=== PATIENT | female | born 1995 | race Caucasian/White ===

== ENCOUNTER 2016-07-30 19:42 | Inpatient (IN) ==
[2016-07-30] MEDS ORDERED: SODIUM CHLORIDE 0.9% 1,000 ML IV STA (20:57)
[2016-07-30] MEDS ORDERED: SODIUM CHLORIDE 0.9% 250 ML IV PRN (20:57)
--- NOTE | 2016-07-30 20:59 | Emergency Department Note ---
IPercy Emily, am scribing for, and in the presence of, Aiden Lagunas MD 20: 23. Bebo Lemus Robert M, MD, personally performed the services described in this documentation, ascribed by Claire Greer in my presence, and it is both accurate and complete . Arrival - Arrival Chief Complaint: Urogenital - Female ED Nursing Triage Note: C/O Lower abd pain that started Saturday night while having sex. Pt reports that she was sore in her lower abd Saturday and all day Saturday- Reports that she tried to have sex again Saturday night when the same sharp pain started again. Pt presented to [facility] today and was sent here for further evaluation/OB US. Pt reports LNMP was Jun 28, but didn't know she was until she went to the hospital. Pt denies vaginal discharge or bleeding. Last BM yesterday-normal. Denies urinary s/s. AB0 Mode of Arrival: Stretcher Limitations: No Limitations Source: Patient Time Seen by Provider: 07/30/16 20:06 - History of Present Illness HPI Narrative: Pt is a 21 y/o female who came to ED from [facility] for further evaluation of OB with US, with a Ben of 103. Pt c/o severe lower abdomen pain that started while having sex on Saturday, 2016. Pt states her pain continued Saturday through Saturday, but denies vaginal bleeding. Pt tried using heating pad to help ease abdomen pain but no relief. Pt had two syncopal episodes, one on Saturday and the other today, in which experiencing profuse diaphoresis, loss of vision, and urinating and defecated twice. Pt's last was under supervision of Dr. Hameed for her 14 month old son. Also , her sister had a tubal in which had no vaginal bleeding but was bleeding into the pelvis and H&H dropped fast, per mother. Onset (ago): day(s) Consistency: constant Severity: moderate, severe Severity scale (1-10): 6 Quality: aching Date of Last Menstrual Period: Jun 28 2016 Allergies/Adverse Reactions: Allergies Allergy/AdvReac Type Severity Reaction Status Date / Time No Known Allergies Allergy Verified 03/03/15 17:47 Home Medications: Home Medications Medication Instructions Recorded Confirmed Type No Known Home Medications [No 07/30/16 07/30/16 History Known Home Medications] Review of System - Review of System 12 point system: reviewed and no additional remarkable complaints except as stated - Review of System Constitutional: Present: diaphoresis (gross when in pain). Absent: chills, fever, weakness Respiratory: Absent: cough, respiratory distress Cardiovascular: Present: syncope (two episodes). Absent: chest pain Gastrointestinal: Present: abdominal pain (severe), nausea. Absent: vomiting, diarrhea Musculoskeletal: Absent: arm pain, back pain Skin: Absent: rash Neurological: Present: abnormal gait (with pain). Absent: headache, confusion Psychiatric: Absent: anxiety Medical,Surgical,& Family Hx - Medical History Neurology: No history of: Brain Aneurysm Reproductive: No history of: Ectopic , Complication - Surgical History Neurologic Surgeries: Patient denies: Brain Aneurysm Reproductive Surgeries: Patient denies;: Section - Family History Family History: Denies;: Family Anesthesia Reaction, Family Cancer, Family Diabetes, Family Heart Disease, Family Hypertension, Family Psychiatric Problems, Family Stroke - Social History Smoking Status: Never smoker Frequency of Alcohol Use: None Type of Drug Use: None Exam Vital Signs: Vital Signs Temperature 98.0 F 07/30/16 19:42 Pulse Rate 113 H 07/30/16 19:42 Respiratory Rate 16 07/30/16 19:42 Blood Pressure 113/75 07/30/16 19:42 O2 Sat by Pulse Oximetry 100 07/30/16 19:42 - General General appearance: alert, in no apparent distress - Head Head exam: Present: atraumatic, normocephalic - Eye Eye exam: Present: PERRL, EOMI - ENT ENT exam: Present: mucous membranes moist. Absent: mucous membranes dry - Neck Neck exam: Present: full ROM. Absent: tenderness - Chest Chest inspection: Present: symmetric chest wall rise. Absent: tenderness - Respiratory Respiratory exam: Present: normal lung sounds bilaterally. Absent: respiratory distress - Cardiovascular Cardiovascular exam: Present: tachycardia, normal heart sounds - Abdominal Exam Abdominal exam: Present: soft, tenderness (both lower quadrants; more so on right than left). Absent: distention, guarding, rebound - Extremities Exam Extremities exam: Present: full ROM. Absent: pedal edema - Neurological Exam Neurological exam: Present: alert, oriented X3, CN II-XII intact. Absent: motor sensory deficit - Psychiatric Psychiatric exam: Present: normal affect, normal mood - Skin Skin exam: Present: warm, dry Course - Consultations Consultation #1: Dr. Hameed was paged. Time: 20:51 Consultation #2: Dr. Hameed requests I call surgery back. I'm going to type and match her for 2 units of blood. Time: 20:54 Results - Diagnostic Findings Procedure: Ultrasound: image reviewed by me (complex fluid within the pelvis throughout. Cystic structure left ovary suspected ectopic.) Disposition Clinical Impression: Ruptured ectopic Case discussed with: patient, patient's family Disposition: Still a Patient Time of Disposition: 20:50
--- NOTE | 2016-07-30 21:13 | Ultrasound Report ---
History: Right lower quadrant pain. Reported positive test Date: 07/30/2016 Study: Transabdominal and transvaginal pelvic ultrasound Comparison exam: No previous available Real-time ultrasound images were captured and archived. Changes abdominal pelvic ultrasound: No intrauterine gestational sac is seen within the anteverted uterus. The endometrial echo measures 9.9 mm. There is a moderate amount of complex echogenic fluid in the posterior cul-de-sac at the midline and extending bilaterally. There is no gross extraovarian adnexal mass. Because of limited visualization, transvaginal images were acquired. Transvaginal pelvic ultrasound: The anteverted uterus measures 8.8 x 4.3 x 4.9 cm. There is no intrauterine gestational sac. The endometrial echo measures 9 mm. The right ovary measures 3.7 x 2.5 x 2.4 cm; the left ovary measures 5.6 x 3.0 x 4.3 mm. There is color Doppler flow to either ovary. There is a 16 mm simple cyst of the left ovary. There is no definite adnexal mass. Impression: Moderate amount of complex fluid with debris in the pelvis. This could represent hemorrhage or products of infection. There is no intrauterine gestational sac. There is no adnexal mass to suggest definite ectopic . Correlation with serum beta hCG level is advised PROCEDURE INTERPRETED AT [facility] DEPARTMENT OF RADIOLOGY Final Report Signed by: Dr. Krupa Howard
[2016-07-30 21:15] LABS: Hematocrit 26.4 VOL% (35.7-47.0); Hemoglobin 8.8 GM/DL (12.0-16.0)
[2016-07-30] MEDS ORDERED: METOCLOPRAMIDE 10 MG/2 ML VIAL ONE (21:18)
[2016-07-30] MEDS ORDERED: FAMOTIDINE 20 MG/2 ML VIAL IV ONE (21:19)
[2016-07-30] MEDS ORDERED: METOCLOPRAMIDE 10 MG/2 ML VIAL IV STA (21:20)
[2016-07-30] MEDS ORDERED: FAMOTIDINE 20 MG/2 ML VIAL IV STA (21:20)
[2016-07-30] MEDS ORDERED: CITRIC ACID/SODIUM CITRATE 30 ML UDCUP PO ONE (21:26)
--- NOTE | 2016-07-30 21:43 | History & Physical Report ---
Assessment and Plan (1) Ruptured ectopic Status: Acute Assessment and plan: Preparing for immediate laparotomy with anticipated salpingectomy. A second possibility could be an early intrauterine with a ruptured corpus luteum of early . Whatever the source there is significant anterior pelvic bleeding requires immediate attention. Current Visit: Yes History of Present Illness Chief complaint: acute pelvic pain History of present illness: Ms. Canales is a 21 year old female who presented to her local emergency room for evaluation of acute pelvic pain. She was discovered to have a positive test at very early levels and an ultrasound confirmed free blood in her pelvis along with a complex adnexal mass. She was transferred to [facility] for management of a presumed ruptured tubal . Home Medications Medication Instructions Recorded Confirmed Type No Known Home Medications [No 07/30/16 07/30/16 History Known Home Medications] Allergies Allergy/AdvReac Type Severity Reaction Status Date / Time No Known Allergies Allergy Verified 03/03/15 17:47 - Constitutional Constitutional: Present: as per HPI - EENT Eyes: Present: as per HPI Nose, mouth and throat: Present: as per HPI - Cardiovascular Cardiovascular: Present: as per HPI. Absent: dyspnea, lightheadedness, palpitations - Respiratory Respiratory: Present: as per HPI. Absent: dyspnea - Gastrointestinal Gastrointestinal: Present: abdominal pain. Absent: constipation, diarrhea, vomiting - Genitourinary Genitourinary: Present: other (pelvic exam not performed. Avoid damaging present ectopic gestation that is probably related leaking) - Musculoskeletal Musculoskeletal: Present: as per HPI - Neurological Neurological: Present: as per HPI - Psychiatric Psychiatric: Present: as per HPI. Absent: anxiety, depression - Endocrine Endocrine: Present: as per HPI - Hematologic/Lymphatic Hematologic/Lymphatic: Present: as per HPI Medical,Surgical,& Family Hx - Medical History Neurology: No history of: Brain Aneurysm Reproductive: No history of: Ectopic , Complication - Surgical History Neurologic Surgeries: Patient denies: Brain Aneurysm Reproductive Surgeries: Patient denies;: Section - Family History Family History: Denies;: Family Anesthesia Reaction, Family Cancer, Family Diabetes, Family Heart Disease, Family Hypertension, Family Psychiatric Problems, Family Stroke - Social History Smoking Status: Never smoker Frequency of Alcohol Use: None Type of Drug Use: None Exam - Constitutional Vitals: Period Temp Pulse Resp BP Sys/Dubose Pulse Ox Last 24 Hr 98.0 F-98.0 F 113-113 16-16 113-113/75-75 100 General appearance: other (moderate discomfort, with facial grimacing) - Head Head exam: Present: normal inspection - Neck Neck exam: Present: normal inspection - Respiratory Respiratory exam: Present: clear to auscultation bilaterally. Absent: accessory muscle use - Cardiovascular Cardiovascular exam: Present: regular rate and rhythm, tachycardia - GI/Abdominal GI/Abdominal exam: Present: guarding, tenderness - Extremities Exam Extremities exam: Present: normal inspection - Back Exam Back exam: Present: normal inspection - Neurological Exam Neurological exam: Present: alert, oriented X3 - Psychiatric Psychiatric exam: Present: normal affect, normal mood - Skin Skin exam: Present: normal color Results - Labs CBC & BMP: 07/30/16 20:21
[2016-07-30] MEDS ORDERED: PHENYLEPHRINE 1 MG/10 ML SYRINGE IV ONE (21:45)
[2016-07-30] MEDS ORDERED: ROCURONIUM 100 MG/10 ML VIAL IV ONE (21:45)
[2016-07-30] MEDS ORDERED: GLYCOPYRROLATE 0.4 MG/2 ML VIAL ONE (21:45)
[2016-07-30] MEDS ORDERED: KETOROLAC 30 MG/1 ML VIAL ONE (21:45)
[2016-07-30] MEDS ORDERED: LIDOCAINE 2% 5 ML VIAL ONE (21:45)
[2016-07-30] MEDS ORDERED: ONDANSETRON 4 MG/2 ML VIAL ONE (21:45)
[2016-07-30] MEDS ORDERED: SUCCINYLCHOLINE 200 MG/10 ML VIAL ONE (21:45)
[2016-07-30] MEDS ORDERED: NEOSTIGMINE 10 MG/10 ML VIAL ONE (21:45)
[2016-07-30] MEDS ORDERED: PROPOFOL 200 MG/20 ML VIAL IV ONE (21:45)
[2016-07-30] MEDS ORDERED: DEXAMETHASONE 4 MG/1 ML VIAL ONE (21:45)
[2016-07-30] MEDS ORDERED: TISSUE ADHESIVE 1 EACH APPLICATOR TOP ONE (22:47)
[2016-07-30] MEDS ORDERED: ceFAZolin 1,000 MG VIAL ONE (22:47)
[2016-07-30 23:37] LABS: Apearance,Urine CLEAR (Clear); Bacteria,Urine Occasional /HPF (Few); Bilirubin,Urine Negative (Negative); Blood, Urine Negative (Negative); Glucose,Urine (UA) Negative (Negative); Ketones,Urine Negative (Negative); Mucus,Urine Occasional /LPF (Occasional); Nitrite,Urine Negative (Negative); Protein,Urine Negative; RBC,Urine 2 /HPF (0-4); Squamous Epithelial Cell,Urine Occasional /HPF (0-10); Urine Color Yellow (Yellow); Urine Specific Gravity 1.019 (1.001-1.035); Urine Urobilinogen < 2.0 EU/DL (0.2-1.0); WBC,Urine 2 /HPF (0-6)
--- NOTE | 2016-07-30 23:57 | Anesthesia ---
Anesthesia Post OP - Post Ansesthetic Evaluation Patient seen in post op: Yes Resp: within normal limits CV: within normal limits Mental: within normal limits Temp: within normal limits Apwe-Mp-Cfzlzszcg: within normal limits Nausea and Vomiting: within normal limits Pain: within normal limits
[2016-07-30] MEDS ORDERED: fentaNYL 100 MCG/2 ML VIAL ONE (23:59)
[2016-07-30] MEDS ORDERED: ACETAMINOPHEN 1,000 MG/100 ML VIAL IV ONE (23:59)
[2016-07-31] MEDS ORDERED: SEVOFLURANE 1 UNIT/15 MINUTE INH ONE
[2016-07-31] MEDS ORDERED: LACTATED RINGERS 2,000 ML IV ONE
[2016-07-31] MEDS ORDERED: HYDROmorphone 2 MG/1 ML VIAL ONE (00:12)
[2016-07-31] MEDS ORDERED: ONDANSETRON 4 MG/2 ML VIAL ONE (00:13)
[2016-07-31] MEDS ORDERED: ONDANSETRON 4 MG/2 ML VIAL IV PRN (00:16)
[2016-07-31] MEDS ORDERED: HYDROmorphone 2 MG/1 ML VIAL IV PRN (00:16)
[2016-07-31] MEDS ORDERED: ACETAMINOPHEN 325 MG TABLET PO PRN (00:26)
[2016-07-31] MEDS ORDERED: IBUPROFEN 800 MG TABLET PO PRN (00:26)
[2016-07-31] MEDS ORDERED: KETOROLAC 30 MG/1 ML VIAL IM ONE (00:26)
[2016-07-31] MEDS ORDERED: BISACODYL 10 MG SUPP RECTAL PRN (00:26)
[2016-07-31] MEDS ORDERED: BENZOCAINE/MENTHOL LOZENGE 18/BOX PO PRN (00:26)
[2016-07-31] MEDS ORDERED: DEXTROSE 5% LACTATED RINGERS 1,000 ML IV SCH (00:30)
[2016-07-31] MEDS ORDERED: LACTATED RINGERS 1,000 ML IV SCH (00:30)
[2016-07-31 00:48] LABS: Basophils % 0.2 % (0.0-0.8); Eosinophils % 0.2 % (0.00-10.9); Hematocrit 25.3 VOL% (35.7-47.0); Hemoglobin 8.4 GM/DL (12.0-16.0); Immature Granulocytes Absolute 0.12 #; Lymphocytes # 1.6 10*3/uL (1.4-4.0); Lymphocytes % 13.2 % (21.3-54.2); Mean Corpuscular HGB Conc 33.2 GM/DL (32-36); Mean Corpuscular Hemoglobin 30 PG (27-34); Mean Corpuscular Volume 88.8 FL (87-102); Mean Platelet Volume 9.5 FL (9.6-12.0); Monocytes # 0.2 10*3/uL (0.11-0.8); Monocytes % 1.7 % (1.7-12.7); Neutrophils # 9.9 10*3/uL (1.4-7.4); Neutrophils % 83.7 % (38.7-73.9); Platelet Count 200 T/CUMM (130-400); Red Blood Count 2.85 MC/CUMM (3.8-5.5); Red Cell Distribution Width 12.4 % (9.3-17.3); White Blood Count 11.9 T/CUMM (4-12)
--- NOTE | 2016-07-31 00:51 | Operative Note ---
Date of procedure: 07/30/16 Pre-op diagnosis: ruptured ectopic with hemoperitoneum Post-op diagnosis: other (ruptured corpus luteum of (left ovary) with hemoperitoneum) Procedure: Exploratory laparotomy with evacuation of hemoperitoneum, reconstruction of left ovary The patient was taken to the operating room and administered a general anesthetic and prepped and draped in supine position. A Pfannenstiel incision was made through the skin and subcutaneous tissue and carried downward to the rectus sheath. Anterior rectus sheath was incised transversely and dissected away from the underlying rectus muscle. Rectus muscle was divided in the midline, the peritoneum identified elevated with hemostats and entered sharply with scissors. A combination of fresh and dark blood was evacuated from the pelvis and lower abdomen. Examination of both fallopian tubes without any evidence of ectopic gestation. The left ovary was enlarged approximately 4 x 5 cm and appeared quite fragile without any gross tear. Approximately 800 mL were evacuated extending up into the abdominal gutters. Careful inspection of all pelvic structures revealed no other source of bleeding. The left ovary was opened along its antimesenteric border and a corpus luteum confirmed. Horizontal mattress sutures were placed through the ovary incorporating blood vessels in the cortex. The surface the cortex was closed with a vertical mattress running stitch of 2-0 Vicryl, with smaller defects repaired with figure -of-eight sutures of 3-0 Vicryl. A small piece of omentum was removed and placed over the top of the ovary and sutured in place with 3-0 Vicryl sutures. Several 100 mL were placed in the abdomen and Clots irrigated out. A stab wound was made left lower quadrant and a CINDY drain inserted into the left lower quadrant placed in the cul-de-sac. This was sutured in place with 0 Vicryl suture. The peritoneum was closed with running suture of 2-0 Vicryl. The rectus muscle was closed with a suture of 2-0 Vicryl with a running technique. The anterior rectus sheath was closed with interrupted sutures of 0 Vicryl. The fat was irrigated and closed with running suture of 2-0 Vicryl. The skin was closed with a running subcuticular suture of 3-0 Monocryl. The patient was sent to the recovery room in satisfactory condition. Anesthesia: MCKENZIEA Surgeon / Physician: Hung Hameed Estimated blood loss: other (1000 mL) Specimens: none sent Condition: stable Disposition: PACU Results - Labs CBC & BMP: 07/30/16 20:21 Discharge Plan - Discharge Data Disposition: Still a Patient - Discharge Medications No Action No Known Home Medications [No Known Home Medications] - Follow Up or Referral - Forms/Instructions
[2016-07-31] MEDS ORDERED: HYDROmorphone 2 MG/1 ML VIAL IM PRN (01:18)
[2016-07-31] MEDS: ONDANSETRON 4 MG/2 ML VIAL IV PRN ×2 (03:45→08:30)
[2016-07-31 04:27] LABS: Hematocrit 22.8 VOL% (35.7-47.0); Hemoglobin 7.5 GM/DL (12.0-16.0)
[2016-07-31] MEDS ORDERED: HYDROmorphone 2 MG/1 ML VIAL IV ONE (08:45)
[2016-07-31] MEDS ORDERED: SIMETHICONE CHEW 80 MG TABLET PO PRN (09:20)
[2016-07-31] MEDS: MAGNESIUM HYDROXIDE SUSP 30 ML UDCUP PO PRN ×2 (09:30→20:43)
[2016-07-31] MEDS: FERROUS SULFATE 325 MG TABLET PO SCH ×2 (09:30→20:44)
[2016-07-31] MEDS: DOCUSATE SODIUM 100 MG CAPSULE PO PRN ×2 (09:30→20:43)
[2016-07-31 10:04] LABS: Basophils % 0.1 % (0.0-0.8); Hematocrit 21.7 VOL% (35.7-47.0); Hemoglobin 7.3 GM/DL (12.0-16.0); Immature Granulocytes % 0.6 %; Immature Granulocytes Absolute 0.05 #; Lymphocytes # 1.1 10*3/uL (1.4-4.0); Lymphocytes % 12.1 % (21.3-54.2); Mean Corpuscular HGB Conc 33.6 GM/DL (32-36); Mean Corpuscular Hemoglobin 30 PG (27-34); Mean Corpuscular Volume 88.2 FL (87-102); Monocytes # 0.7 10*3/uL (0.11-0.8); Monocytes % 7.8 % (1.7-12.7); Neutrophils % 79.4 % (38.7-73.9); Platelet Count 165 T/CUMM (130-400); Red Blood Count 2.46 MC/CUMM (3.8-5.5); Red Cell Distribution Width 12.6 % (9.3-17.3); White Blood Count 8.8 T/CUMM (4-12)
--- NOTE | 2016-07-31 15:44 | OB/GYN Progress Note ---
Assessment and Plan (1) Ruptured ectopic Status: Acute Assessment and plan: Preparing for immediate laparotomy with anticipated salpingectomy. A second possibility could be an early intrauterine with a ruptured corpus luteum of early . Whatever the source there is significant anterior pelvic bleeding requires immediate attention. Current Visit: Yes (2) Corpus luteum cyst of left ovary Status: Acute Current Visit: Yes (3) Corpus luteum cyst of left ovary Status: Acute Assessment and plan: Apparent continuing early (suspect between 4 and 5 weeks menstrual gestation). Current Visit: Yes (4) Acute blood loss anemia Status: Acute Assessment and plan: Transfuse 2 units packed RBC's Current Visit: Yes STAFF NURSE ICU RESOURCE TEAM - PN: Subj Interval history: Patient stabilized well and has been able to Ambulate to the Bathroom. Count Has Dropped down to Hemoglobin 7.3 and the Patient Appears Pale but All Vital Signs Have Remained within Normal Range. Exam STAFF NURSE ICU RESOURCE TEAM - Constitutional Vitals: Vital Signs Temp Pulse Pulse Resp BP Pulse Ox Pulse Ox 07/31/16 14:00 20 07/31/16 12:00 16 07/31/16 11:32 98.9 F 84 16 87/46 07/31/16 10:00 20 07/31/16 08:00 83 16 07/31/16 07:38 98 F 83 16 96/59 07/31/16 06:00 92 H 20 93/60 07/31/16 05:00 82 18 98/56 07/31/16 03:45 99.1 F 103 H 18 99/58 99 07/31/16 02:11 91 H 16 94/54 98 07/31/16 01:50 89 20 104/61 100 07/31/16 01:20 79 16 99/64 100 07/31/16 01:12 98.5 F 75 18 96/71 100 07/31/16 00:50 98.5 F 75 18 96/71 100 07/31/16 00:33 98.0 F 82 20 112/68 100 07/31/16 00:28 70 16 110/55 100 Pulse Ox 07/31/16 14:00 07/31/16 12:00 07/31/16 11:32 97 07/31/16 10:00 07/31/16 08:00 07/31/16 07:38 100 07/31/16 06:00 96 07/31/16 05:00 96 07/31/16 03:45 07/31/16 02:11 07/31/16 01:50 07/31/16 01:20 07/31/16 01:12 07/31/16 00:50 07/31/16 00:33 07/31/16 00:28 General appearance: no acute distress - Neck Neck exam: Present: normal inspection - Respiratory Respiratory exam: Present: clear to auscultation bilaterally - Breast Menstruation: other (no vaginal bleeding) - Cardiovascular Cardiovascular exam: Present: tachycardia. Absent: irregular rhythm - GI/Abdominal GI/Abdominal exam: Present: distended, hypoactive bowel sounds, soft. Absent: guarding, tenderness, rebound - Extremities Exam Extremities exam: Present: normal inspection - Neurological Exam Neurological exam: Present: alert, oriented X3 - Psychiatric Psychiatric exam: Present: normal affect, normal mood - Skin Skin exam: Present: pallor Results - Labs CBC & BMP: 07/31/16 09:54
[2016-08-01 05:14] LABS: Basophils % 0.3 % (0.0-0.8); Eosinophils # 0.1 10*3/uL (0.0-0.87); Eosinophils % 1.1 % (0.00-10.9); Hematocrit 26.5 VOL% (35.7-47.0); Hemoglobin 8.8 GM/DL (12.0-16.0); Immature Granulocytes % 0.4 %; Immature Granulocytes Absolute 0.03 #; Lymphocytes # 2.2 10*3/uL (1.4-4.0); Lymphocytes % 31.9 % (21.3-54.2); Mean Corpuscular HGB Conc 33.2 GM/DL (32-36); Mean Corpuscular Hemoglobin 29 PG (27-34); Mean Corpuscular Volume 88.6 FL (87-102); Monocytes # 0.4 10*3/uL (0.11-0.8); Monocytes % 6.3 % (1.7-12.7); Neutrophils # 4.2 10*3/uL (1.4-7.4); Platelet Count 174 T/CUMM (130-400); Red Blood Count 2.99 MC/CUMM (3.8-5.5); Red Cell Distribution Width 13.6 % (9.3-17.3)
[2016-08-01] MEDS: FERROUS SULFATE 325 MG TABLET PO SCH (08:48)
[2016-08-01] MEDS: DOCUSATE SODIUM 100 MG CAPSULE PO PRN (08:48)
[2016-08-01 11:26] VITALS: BP 110/60
--- NOTE | 2016-08-01 12:41 | Discharge Summary ---
Hospital Course - Hospital Course Hospital Course: This patient was admitted through the emergency room with classical symptoms of a ruptured ectopic with hemoperitoneum. Emergency laparotomy was performed which revealed both tubes to be normal and a ruptured corpus luteum hemorrhagicum left. The pneumoperitoneum was evacuated and the ovary repaired. She received several units of blood postoperative for acute blood loss anemia. Today she is ambulating voiding tolerating diet well. Her hemoglobin is only back up to about 8 gm% but she feels ready to go home. Diagnosis - Discharge Diagnosis (1) Corpus luteum cyst of left ovary Status: Acute (2) Acute blood loss anemia Status: Acute Discharge Plan - Discharge Data Disposition: Disch To Home/Self Care Condition at Discharge: Stable Discharge Diet: advance to your usual diet Activity: resume usual activities as tolerated Hygiene: no restrictions Contact your physician if you experience:: fever over 101, Difficulty voiding, Redness or swelling, Nausea/Vomiting - Discharge Medications New HYDROcodone/ACETAMIN 5-325 [[place] 5-325] 1 tablet PO Q4H PRN #20 tablet PRN Reason: Pain Moderate (4-7) - Follow Up or Referral Follow Up: Hung Hameed DO [Physician] - - Forms/Instructions Additional Discharge Instructions: RTO next week. Exam - Constitutional Vitals: Period Temp Pulse Resp BP Sys/Dubose Pulse Ox Last 24 Hr 97.6 F-98.9 F 71-108 16-20 88-110/52-67 96-99 General appearance: no acute distress - Cardiovascular Cardiovascular exam: Present: regular rate and rhythm - GI/Abdominal GI/Abdominal exam: Present: normal bowel sounds, other (CINDY drain removed from LLQ w/o problems.). Absent: guarding, tenderness, rebound - Neurological Exam Neurological exam: Present: alert, oriented X3 - Psychiatric Psychiatric exam: Present: normal affect, normal mood - Skin Skin exam: Present: normal color, warm, dry Discharge Results Procedures and tests throughout hospitalization: Pending Orders 08/02/16 04:00 CBC [Comp Blood Count Auto Diff] IN AM Labs on day of discharge: Labs from last 24 hours 08/01/16 04:55 WBC 7.0 RBC 2.99 L D Hgb 8.8 L D Hct 26.5 L MCV 88.6 MCH 29 MCHC 33.2 RDW 13.6 Plt Count 174 MPV 9.0 L Neut % (Auto) 60.0 Lymph % (Auto) 31.9 Haakon % (Auto) 6.3 Eos % (Auto) 1.1 Baso % (Auto) 0.3 Neut # (Auto) 4.2 Lymph # (Auto) 2.2 Haakon # (Auto) 0.4 Eos # (Auto) 0.1 Baso # (Auto) 0.0 Immature Gran % 0.4 Nucleated RBC % 0.0 Immature Gran # 0.03 Nucleated RBCs # 0.00 DS: Provider Date of admission: 07/31/16 00:19 Primary care physician: . No PCP Attending physician on admission: Hugn Hameed DO Discharging clinician: Hung Hameed DO Expected date of discharge: 08/01/16
== END 2016-08-01 13:20 | disposition home or self-care (01) | DRG 781 ==
LOC: EDUNIT# → N.ED 19:42 → N.OB 21:47 → N.EDINP 07-31 00:19 → N.OB 07-31 01:04
PROVIDERS: ADMIT Obstetrics & Gynecology; ATTEND Obstetrics & Gynecology

== ENCOUNTER 2017-07-17 03:18 | Inpatient (IN) ==
[2017-07-17] MEDS ORDERED: BUTORPHANOL 2 MG/ML VIAL IV PRN (03:49)
[2017-07-17] MEDS ORDERED: TERBUTALINE 1 MG/1 ML VIAL SUBCUT PRN (03:49)
[2017-07-17] MEDS ORDERED: ONDANSETRON 4 MG/2 ML VIAL IV PRN ×2 (03:49→07:16)
[2017-07-17] MEDS: LACTATED RINGERS 1,000 ML IV SCH ×2 (04:00→04:58)
[2017-07-17] MEDS ORDERED: OXYTOCIN/LR 20 UNIT/1,000 ML BAG IV SCH (04:00)
[2017-07-17 04:32] LABS: Basophils % 0.3 % (0.0-0.8); Eosinophils % 0.3 % (0.00-10.9); Hemoglobin 10.6 GM/DL (12.0-16.0); Immature Granulocytes % 0.7 %; Immature Granulocytes Absolute 0.05 #; Lymphocytes # 1.8 10*3/uL (1.4-4.0); Lymphocytes % 26.6 % (21.3-54.2); Mean Corpuscular HGB Conc 31.2 GM/DL (32-36); Mean Corpuscular Hemoglobin 25 PG (27-34); Mean Corpuscular Volume 80.4 FL (87-102); Mean Platelet Volume 9.6 FL (9.6-12.0); Monocytes # 0.4 10*3/uL (0.11-0.8); Monocytes % 5.6 % (1.7-12.7); Neutrophils # 4.5 10*3/uL (1.4-7.4); Neutrophils % 66.5 % (38.7-73.9); Platelet Count 201 T/CUMM (130-400); Red Blood Count 4.23 MC/CUMM (3.8-5.5); Red Cell Distribution Width 14.6 % (9.3-17.3); White Blood Count 6.8 T/CUMM (4-12)
[2017-07-17 05:05] LABS: Alanine Aminotransferase 11 U/L (13-56); Albumin 2.6 G/DL (3.4-5.0); Alkaline Phosphatase 196 U/L (45-117); Aspartate Amino Transferase 15 U/L (0-37); Bilirubin,Total < 0.39 MG/DL (0.2-1.0); Blood Urea Nitrogen 12 MG/DL (7-18); Calcium 8.1 MG/DL (8.5-10.1); Glucose 77 MG/DL (74-106); Osmolality,Calculated 275.5 MOS/KG (273-304); Potassium 3.7 MMOL/L (3.5-5.1); Sodium 139 MMOL/L (136-145); Total Protein 5.9 G/DL (6.4-8.3)
[2017-07-17] MEDS ORDERED: CITRIC ACID/SODIUM CITRATE 30 ML UDCUP ONE (05:19)
[2017-07-17] MEDS ORDERED: diphenhydrAMINE 50 MG/1 ML VIAL IV PRN (05:21)
[2017-07-17] MEDS ORDERED: ePHEDrine 50 MG/ML AMP IV PRN (05:21)
[2017-07-17] MEDS ORDERED: LACTATED RINGERS 250 ML IV PRN (05:21)
[2017-07-17] MEDS ORDERED: hydrOXYzine HCL 25 MG/1 ML VIAL IM PRN (05:21)
[2017-07-17] MEDS ORDERED: LACTATED RINGERS 1,000 ML IV ONE (05:21)
[2017-07-17] MEDS ORDERED: FAMOTIDINE 20 MG/2 ML VIAL IV ONE ×2 (05:27→05:30)
[2017-07-17] MEDS ORDERED: PROMETHAZINE 25 MG/1 ML VIAL IM ONE (05:30)
[2017-07-17] MEDS ORDERED: CITRIC ACID/SODIUM CITRATE 30 ML UDCUP PO ONE (05:30)
[2017-07-17] MEDS ORDERED: LACTATED RINGERS 1,000 ML IV SCH (05:30)
[2017-07-17] MEDS ORDERED: fentaNYL 2 MCG/ROPIV 0.2% EPID 150 ML EPIDURAL SCH (05:30)
[2017-07-17 05:51] LABS: Apearance,Urine Slightly Hazy (Clear); Bacteria,Urine Occasional /HPF (Few); Bilirubin,Urine Negative (Negative); Blood, Urine Negative (Negative); Calcium Oxalate Crystals,Urine Few /HPF (Few); Glucose,Urine (UA) Negative (Negative); Hyaline Casts,Urine 4 /LPF (0-3); Ketones,Urine 80 mg/dL (Negative); Mucus,Urine Many /LPF (Occasional); Nitrite,Urine Negative (Negative); Protein,Urine Negative; Squamous Epithelial Cell,Urine Occasional /HPF (0-10); Urine Color Yellow (Yellow); Urine Specific Gravity 1.025 (1.001-1.035); Urine Urobilinogen < 2.0 EU/DL (0.2-1.0); WBC,Urine <1 /HPF (0-6)
[2017-07-17] MEDS ORDERED: miSOPROStol 200 MCG TABLET ONE (06:49)
[2017-07-17] MEDS ORDERED: METHYLERGONOVINE 0.2 MG/1 ML AMP ONE (06:49)
[2017-07-17] MEDS ORDERED: LIDOCAINE 1% 50 ML VIAL ONE (06:49)
[2017-07-17] MEDS ORDERED: BISACODYL 10 MG SUPP RECTAL PRN (07:16)
[2017-07-17] MEDS ORDERED: HYDROCORTISONE 2.5% RECTAL CREAM 30 GM TUBE TOP PRN (07:16)
[2017-07-17] MEDS ORDERED: BENZOCAINE 20%/MENTHOL 0.5% SPRAY 56 GM CAN TOP PRN (07:16)
[2017-07-17] MEDS ORDERED: DIPH/TET/ACEL PERT BOOSTER VACCINE 0.5 ML VIAL IM ONE (07:16)
[2017-07-17] MEDS ORDERED: LANOLIN 50% CREAM 0.3 OZ TUBE TOP PRN (07:16)
[2017-07-17] MEDS ORDERED: WITCH HAZEL PADS 100/JAR TOP PRN (07:16)
[2017-07-17] MEDS ORDERED: RHO(D) IMMUNE GLOBULIN 300 MCG SYRINGE IM ONE (07:16)
[2017-07-17] MEDS ORDERED: MEASLES/MUMPS/RUBELLA VACCINE 0.5 ML VIAL SUBCUT ONE (07:16)
[2017-07-17] MEDS ORDERED: oxyCODONE/ACETAMINOPHEN 5-325 MG TABLET PO PRN ×2 (07:16)
[2017-07-17] MEDS ORDERED: OXYTOCIN/LR 20 UNIT/1,000 ML BAG IV ONE (07:16)
[2017-07-17] MEDS ORDERED: ACETAMINOPHEN 325 MG TABLET PO PRN (07:16)
[2017-07-17] MEDS: IBUPROFEN 800 MG TABLET PO PRN (18:54)
[2017-07-17] MEDS: DOCUSATE SODIUM 100 MG CAPSULE PO SCH ×2 (20:39→21:29)
[2017-07-18] MEDS: IBUPROFEN 800 MG TABLET PO PRN ×2 (03:31→14:07)
[2017-07-18 06:33] LABS: Basophils % 0.4 % (0.0-0.8); Eosinophils % 0.2 % (0.00-10.9); Hematocrit 31.5 VOL% (35.7-47.0); Hemoglobin 9.8 GM/DL (12.0-16.0); Immature Granulocytes % 0.6 %; Immature Granulocytes Absolute 0.05 #; Lymphocytes # 2.4 10*3/uL (1.4-4.0); Lymphocytes % 27.6 % (21.3-54.2); Mean Corpuscular HGB Conc 31.1 GM/DL (32-36); Mean Corpuscular Hemoglobin 25 PG (27-34); Mean Corpuscular Volume 79.5 FL (87-102); Mean Platelet Volume 9.9 FL (9.6-12.0); Monocytes # 0.5 10*3/uL (0.11-0.8); Monocytes % 5.6 % (1.7-12.7); Neutrophils # 5.6 10*3/uL (1.4-7.4); Neutrophils % 65.6 % (38.7-73.9); Platelet Count 188 T/CUMM (130-400); Red Blood Count 3.96 MC/CUMM (3.8-5.5); Red Cell Distribution Width 14.9 % (9.3-17.3); White Blood Count 8.5 T/CUMM (4-12)
[2017-07-18] MEDS: DOCUSATE SODIUM 100 MG CAPSULE PO SCH ×2 (08:25→22:05)
[2017-07-18] MEDS: FERROUS SULFATE 325 MG TABLET PO SCH (08:25)
[2017-07-19] MEDS: DOCUSATE SODIUM 100 MG CAPSULE PO SCH (09:16)
[2017-07-19] MEDS: FERROUS SULFATE 325 MG TABLET PO SCH (09:16)
[2017-07-19 11:46] VITALS: BP 111/74
[2017-07-19] MEDS: IBUPROFEN 800 MG TABLET PO PRN (14:45)
== END 2017-07-19 15:45 | disposition home or self-care (01) | DRG 775 ==
LOC: N.LD 03:18 → N.OB 09:32
PROVIDERS: ADMIT Obstetrics & Gynecology; ATTEND Obstetrics & Gynecology